=== PATIENT | female | born 1975 | race Caucasian/White ===

== ENCOUNTER 2018-04-12 14:31 | Emergency (ER) | payer MEDICAID ==
[2018-04-12 15:32] LABS: URINE BLOOD (Dip) POC 2+ (NEGATIVE); URINE GLUCOSE (Dip) POC Negative (NEGATIVE); URINE KETONES (Dip) POC Negative (NEGATIVE); URINE LEUKOCYTE EST (Dip) POC Trace (NEGATIVE); URINE NITRITE (Dip) POC Negative (NEGATIVE); URINE TOTAL PROTEIN POC Negative (NEGATIVE)
[2018-04-12] MEDS: KETOROLAC 30 MG INJ IM (15:45)
== END 2018-04-12 16:20 | disposition home or self-care (01) ==
LOC: FTE 14:31
DX: G43.909 Migraine, unspecified, not intractable, without status migrainosus (principal); J45.909 Unspecified asthma, uncomplicated
CPT/HCPCS: 81003; 81025; 96372; 99284-25

== ENCOUNTER 2018-04-19 10:59 | Emergency (ER) | payer MEDICAID ==
[2018-04-19] MEDS: DIPHENHYDRAMINE 50 MG CAP PO (11:39)
[2018-04-19] MEDS: DEXAMETHASONE 4 MG TAB PO (11:39)
== END 2018-04-19 12:17 | disposition home or self-care (01) ==
LOC: FTE 10:59
DX: T63.481A Toxic effect of venom of other arthropod, accidental (unintentional), initial encounter (principal); R40.2412 Glasgow coma scale score 13-15, at arrival to emergency department; J45.909 Unspecified asthma, uncomplicated
CPT/HCPCS: 99283; Z7502

== ENCOUNTER 2018-07-05 14:57 | Emergency (ER) | payer MEDICAID ==
[2018-07-05] MEDS: ALBUTEROL 0.083% (NEB) 2.5 MG/3 ML AMP NEB (17:47)
[2018-07-05] MEDS: DEXAMETHASONE (1 MG/ML PO SYG) PO (18:05)
== END 2018-07-05 18:29 | disposition home or self-care (01) ==
LOC: FTE 14:57
DX: J45.901 Unspecified asthma with (acute) exacerbation (principal)
CPT/HCPCS: 94664; 99283-25

== ENCOUNTER 2018-08-26 08:40 | Emergency (ER) | payer MEDICAID ==
[2018-08-26] MEDS: KETOROLAC 30 MG INJ IM (09:46)
[2018-08-26] MEDS: HYDROCODONE/APAP (5/325) TAB PO (10:59)
== END 2018-08-26 12:07 | disposition home or self-care (01) ==
LOC: FTE 08:40
DX: R51 Headache (principal); J45.901 Unspecified asthma with (acute) exacerbation; I10 Essential (primary) hypertension
CPT/HCPCS: 81025; 96372; 99284-25